=== PATIENT | male | born 1980 | race Caucasian/White ===

== ENCOUNTER 2022-03-08 08:45 | Emergency (ER) | payer OTHER ==
[~2022-03-08] VITALS: Ht 182.9 cm; Wt 108.9 kg
--- NOTE | 2022-03-08 09:04 | ED Integumentary General ---
General Chief Complaint: Laceration Stated Complaint: L LEG LAC Source: patient Exam Limitations: no limitations History of Present Illness Date Seen by Provider: Mar 08, 2022 Time Seen by Provider: 08:56 Initial Comments Patient is a 41-year-old male who presents to the emergency department today with a chief complaint of left leg laceration. Patient states he was running a chainsaw, missed his footing and brought the chainsaw back down onto his left leg. He suffered a laceration that went through his coveralls into the distal thigh. Did not fall, did not suffer any other injuries. Unknown last tetanus shot. Patient states he is allergic to "pertussis". All other review of systems reviewed and negative except as stated. Timing/Duration: just prior to arrival Severity: moderate Location: extremities Possible Cause: other (wound) Associated Symptoms: denies symptoms Allergies and Home Medications Allergies Coded Allergies: Pertussis Vaccines (Verified Allergy, Unknown, 03/08/22) Patient Home Medication List Home Medication List Reviewed: Yes Review of Systems Review of Systems Constitutional: see HPI EENTM: no symptoms reported Respiratory: no symptoms reported Cardiovascular: no symptoms reported Gastrointestinal: no symptoms reported Skin: other (laceration) Past Ruuaegp-Bilufk-Fjjyih Hx Patient Social History Tobacco Use?: No Smoking Status: Never a Smoker Smokeless Tobacco Frequency: Never a User Use of E-Cig and/or Vaping dev: No Use of E-Cig and/or Vaping Keith: Never a User Substance use?: Yes Substance type: Marijuana Substance frequency: Couple times a week Alcohol Use?: Yes Alcohol type: Beer Alcohol Frequency: Daily Pt feels they are or have been: No Physical Exam Vital Signs Vital Signs - First Documented 03/08/22 08:50 Temp 35.7 Pulse 105 Resp 16 B/P (MAP) 148/112 (124) O2 Delivery Room Air Capillary Refill : General Appearance: WD/WN, no apparent distress HEENT: PERRL/EOMI Cardiovascular: regular rate, rhythm Respiratory: no respiratory distress, no accessory muscle use Extremities: normal range of motion, non-tender, no pedal edema, no calf tenderness, normal capillary refill Neurologic/Psychiatric: alert, normal mood/affect, oriented x 3 Skin: other (5 cm laceration that extends across the medial distal thigh just cephalad to the knee. It is gaping approximately 1-1/2 cm. Subcutaneous fat is exposed, no muscle belly or fascia is observed. Minimal active bleeding.) Skin Problem Character: linear Procedures/Interventions Wound Location: Lower Extremities Other Wound Location left distal thigh - medial and superior to the knee Wound Length (cm): 5 Wound's Depth, Shape: superficial, contused tissue, sub Q Wound Explored: clean Irrigated w/ Saline (ccs): 350 Betadine Prep?: Yes Anesthesia: 1% Lidocaine Volume Anesthetic (ccs): 8 Wound Debrided: minimal Staple Repair: Stapler 35W Number of Sutures: 9 Layer Closure?: 1 Sterile Dressing Applied?: Yes Progress/Results/Core Measures Results/Orders My Orders Orders - VICKI CLINE MD Tetanus/Diphtheria Inj (Adult) (Tenivac (03/08/22 09:15) Medications Given in ED Current Medications Medications Dose Ordered Sig/Crystal Route Start Time Stop Time Status Last Admin Dose Admin Tetanus/ Diphtheria Toxoids 0.5 ml ONCE ONCE IM 03/08/22 09:15 03/08/22 09:16 DC 03/08/22 09:11 0.5 ML Vital Signs/I&O 03/08/22 08:50 Temp 35.7 Pulse 105 Resp 16 B/P (MAP) 148/112 (124) O2 Delivery Room Air Departure Impression Primary Impression: Leg laceration Qualified Codes: S81.812A - Laceration without foreign body, left lower leg, initial encounter Disposition: 01 HOME, SELF-CARE Condition: Improved Departure-Patient Inst. Decision time for Depature: 09:37 Referrals: NO,LOCAL PHYSICIAN (PCP/Family) Primary Care Physician Patient Instructions: Laceration Repair With [facility] ED Add. Discharge Instructions: Keep the wound clean dry and covered especially while you are working. You can apply a little triple antibiotic ointment over the karine twice a day for the first 2 to 3 days. If the wound becomes swollen, red, hot or looks like it is draining pus please come back to the emergency department for wound evaluation. Do not use peroxide or alcohol around the wound. It can be open to air while you are at home. Return to have the karine removed in 2 weeks. VICKI CLINE MD Mar 08, 2022 09:04
[2022-03-08] MEDS ORDERED: TETANUS & DIPHTHERIA TOX,ADULT 0.5 ML (TENIVAC) IM ONE (09:15)
[2022-03-08 10:08] VITALS: BP 134/76
== END 2022-03-08 10:08 | disposition home or self-care (01) ==
LOC: ER 08:48
DX: S81.812A Laceration without foreign body, left lower leg, initial encounter (principal); Z28.310 Unvaccinated for COVID-19; Z23 Encounter for immunization; W29.8XXA Contact with other powered hand tools and household machinery, initial encounter
CPT/HCPCS: 90714; 99284